=== PATIENT | male | born 1970 | race Caucasian/White ===

== ENCOUNTER → 2016-06-25 | Day surgery (SDC) | payer OTHER ==
[~2016-06-25] VITALS: Ht 182.8 cm; Wt 108.9 kg
[~2016-06-25] MED LIST: BACTRIM DS 8001 TA1 PO; CELEXA40 MG PO; CEPHALEXIN500 M1 PO; CIPROFLOXACIN500 MG PO; ELAVIL25 MG PO; FLEXERIL10 MG PO; FLOMAX0.4 MG PO; HYDROCODONE BIT1 T11 PO; MEDROL DOSEPAK4 MG PO; MINOCYCLINE HC100 MG PO; MOTRIN800 MG PO; NAPROSYN375 MG PO; NAPROSYN500 MG PO; NEURONTIN300 MG PO; NORCO 10-325 T1 EACH PO; NORCO 5-325 TA1 EACH PO; OXYCODONE30 MG PO; PERCOCET 325 MG1 TA2 PO; PERCOCET 325 MG1 TA3 PO; PERCOCET 325 MG1 TAB PO; PROZAC20 MG PO; VENTOLIN H0.09 MG/AC INH; XANAX1 MG PO; ZANTAC 150150 MG PO; ZITHROMAX250 MG PO; ZOFRAN ODT4 MG SL
--- NOTE | ~2016-06-25 | O ---
[place], [place] OPERATIVE NOTE NAME: [facility] #: [id number] UNIT #: [id number] ROOM: DOCTOR: ELISABETH MCCORD MD BIRTHDATE: [birth year] DOS: 06/25/2016 PREOPERATIVE DIAGNOSIS: Open wound, left elbow, status post wide drainage of the antecubital fossa abscess. POSTOPERATIVE DIAGNOSIS: Open wound, left elbow, status post wide drainage of the antecubital fossa abscess. PROCEDURE DONE: Secondary closure of this wound, measured 5-6 cm length and width is 2 cm. SURGEON: Elisabeth Mccord M.D. DESCRIPTION OF PROCEDURE: Under general anesthesia, the patient was prepped and draped. Area was cleaned with hydrogen peroxide. Using electrocautery, the skin margin raised. Closure done in single layer 2-0 nylon vertical mattress sutures. Between those 2-0 nylon 3-0 nylon suture used. After application of Xeroform gauze, dressing applied. The patient tolerated the procedure well and was sent to room. Elisabeth Mccord MD CM:OPRECORD:OPERATIVE NOTE [id number] ELISABETH MCCORD MD 06/25/16 1553 interface
[2016-06-25 06:59] VITALS: BP 123/78
[2016-06-25 08:31] VITALS: BP 128/83
[2016-06-25 08:45] VITALS: BP 122/79
[2016-06-25 08:59] VITALS: BP 136/77
[2016-06-25 09:15] VITALS: BP 129/77
[2016-06-25 09:28] VITALS: BP 117/78
== END | disposition home or self-care (01) ==
LOC: SDC 01:26
DX: S51.002A Unspecified open wound of left elbow, initial encounter (principal); G43.909 Migraine, unspecified, not intractable, without status migrainosus; Z83.3 Family history of diabetes mellitus; Z80.9 Family history of malignant neoplasm, unspecified; Z82.49 Family history of ischemic heart disease and other diseases of the circulatory system; F17.210 Nicotine dependence, cigarettes, uncomplicated